=== PATIENT | female | born 1970 | race Caucasian/White ===

== ENCOUNTER 2018-05-16 17:52 | Emergency (ER) | payer MEDICAID ==
[~2018-05-16] VITALS: Ht 167.6 cm; Wt 83.5 kg
[2018-05-16 18:09] VITALS: Ht 167.6 cm; Wt 83.5 kg
[2018-05-16 19:39] VITALS: BP 126/75
== END 2018-05-16 19:39 | disposition home or self-care (01) ==
LOC: ED 17:52
DX: S39.012A Strain of muscle, fascia and tendon of lower back, initial encounter (principal); I10 Essential (primary) hypertension; X50.0XXA Overexertion from strenuous movement or load, initial encounter; Y93.89 Activity, other specified; Y92.89 Other specified places as the place of occurrence of the external cause; Y99.8 Other external cause status
CPT/HCPCS: J1885